=== PATIENT | male | born 1945 | race Two or more races ===

== ENCOUNTER 2022-12-29 05:32 | Day surgery (SDC) | payer OTHER ==
[~2022-12-29 05:32] MED LIST: CLONAZEPAM0.5 MG PO; LEVOTHYROXINE25 MCG PO; LIPITOR40 MG PO; TOPROL XL25 M1 PO; VASOTEC5 MG PO
[2022-12-29] MEDS ORDERED: TRAM1TAB98 PO (08:54)
== END 2022-12-29 12:55 | disposition home or self-care (01) ==
LOC: CIR.AMB 05:32
PROVIDERS: ATTEND Surgery
DX: C18.7 Malignant neoplasm of sigmoid colon (principal); Z20.822 Contact with and (suspected) exposure to COVID-19

== ENCOUNTER 2023-01-16 17:00 | Emergency (ER) | payer OTHER ==
[~2023-01-16] VITALS: Ht 177.8 cm; Wt 68.0 kg
[~2023-01-16 17:00] MED LIST changes: +TRAM1TAB98 PO
[2023-01-16] MEDS ORDERED: LEVSIN/SL0.125 MG SL (21:11)
== END 2023-01-16 21:39 | disposition home or self-care (01) ==
LOC: ER 17:00
DX: R10.11 Right upper quadrant pain (principal); Z85.038 Personal history of other malignant neoplasm of large intestine; Z85.05 Personal history of malignant neoplasm of liver; Z85.118 Personal history of other malignant neoplasm of bronchus and lung